=== PATIENT | male | born 1975 | race Caucasian/White ===

== ENCOUNTER 2022-06-02 03:23 | Outpatient (CLI) | payer BC, SELFPAY ==
[2022-06-02 08:34] LABS: ALT 45 U/L (16-63); AST 30 U/L (15-37); Albumin 4.3 g/dL (3.4-5.0); Alkaline Phosphatase 58 U/L (46-116); Anion Gap 6.4 mmol/L (3-11); BUN 14 mg/dL (7-18); Bilirubin, Total 0.7 mg/dL (0.2-1.0); CO2 29.6 mmol/L (21.0-32.0); CREATININE 0.9 mg/dL (0.70-1.30); Calcium 9.2 mg/dL (8.5-10.1); Calculated LDL 129 mg/dL (<100); Chloride 106 mmol/L (98-107); Cholesterol 195 mg/dL (<200); Estimated GFR 106.01 (mL/min/1.73m2); Glucose 98 mg/dL (74-106); HDL Cholesterol 48 mg/dL (40-60); Potassium 3.8 mmol/L (3.5-5.1); Sodium 142 mmol/L (136-145); Total Protein 8.1 g/dL (6.4-8.2); Triglyceride 91 mg/dL (<150)
== END 2022-06-02 03:24 | disposition home or self-care (01) ==
LOC: LBO 03:23
PROVIDERS: PCP Nurse Practitioner Adult Health; Visit Provider Nurse Practitioner Adult Health
DX: Z13.1 Encounter for screening for diabetes mellitus (principal); Z13.220 Encounter for screening for lipoid disorders; Z83.3 Family history of diabetes mellitus
CPT/HCPCS: 36415; 80053; 80061

== ENCOUNTER → 2023-01-28 02:48 | Outpatient (CLI) | payer BC, SELFPAY ==
--- NOTE | 2023-01-28 14:30 | DI.MRI_ITS ---
Exam(s) MR LOWER JOINT RT WO EXAM: MR LOWER JOINT RT WO CLINICAL HISTORY: INTERNAL DERANGEMENT RT KNEE M23.91. TECHNIQUE: Multiplanar multisequence MRI was performed. COMPARISON: CR KNEE from 01/02/2023 FINDINGS: BONES: There is no fracture or contusion pattern. There are findings of a prior ACL repair in the bon es Joint effusion. JOINTS: Articular cartilage is unremarkable. There is a small joint effusion. TENDONS: Extensor mechanism: Unremarkable. Medial retinaculum: Unremarkable. Lateral retinaculum: Unremarkable. Popliteus: Unremarkable. MUSCLES: Unremarkable. MENISCI: The posterior horn of the medial meniscus is truncated. There does appear to be extra mater ial in the anterior joint space suspicious for tear with a flipped fragment. There is hyperintense s ignal seen in the region of the root of the lateral meniscus suspicious for tear. SOFT TISSUES: Unremarkable. LIGAMENTS: Anterior Cruciate: There is a torn ACL. Posterior Cruciate: Unremarkable. Medial Collateral:Unremarkable. Lateral Collateral: Unremarkable. OTHER: IMPRESSION: 1. Tear of the posterior horn of the medial meniscus with fragment material seen now in the anterior joint space. 2. Findings suspicious for tear of the root of the lateral meniscus. 3. Anterior cruciate ligament tear. DATA REPOSITORY:
== END ==
PROVIDERS: PCP Nurse Practitioner Adult Health; Visit Provider Nurse Practitioner Acute Care
DX: S83.511A Sprain of anterior cruciate ligament of right knee, initial encounter (principal); M23.221 Derangement of posterior horn of medial meniscus due to old tear or injury, right knee; X58.XXXA Exposure to other specified factors, initial encounter
CPT/HCPCS: 73721

== ENCOUNTER 2024-05-09 09:21 | Outpatient (CLI) | payer BC, SELFPAY ==
[2024-05-09 09:12] LABS: Anion Gap 7.1 mmol/L (3-11); BUN 15 mg/dL (7-18); CO2 28.9 mmol/L (21.0-32.0); Calcium 9.5 mg/dL (8.5-10.1); Calculated LDL 132 mg/dL (<100); Chloride 107 mmol/L (98-107); Cholesterol 198 mg/dL (<200); Estimated GFR 92.26 (mL/min/1.73m2); Glucose 104 mg/dL (74-106); HDL Cholesterol 53 mg/dL (40-60); Potassium 3.9 mmol/L (3.5-5.1); Sodium 143 mmol/L (136-145); Triglyceride 68 mg/dL (<150)
== END 2024-05-09 09:22 | disposition home or self-care (01) ==
LOC: LBO 09:22
PROVIDERS: PCP Nurse Practitioner Adult Health; Visit Provider Nurse Practitioner Adult Health
DX: Z13.1 Encounter for screening for diabetes mellitus (principal); Z13.220 Encounter for screening for lipoid disorders
CPT/HCPCS: 36415; 80048; 80061

== ENCOUNTER 2025-05-15 08:03 | Outpatient (CLI) | payer OTHER, SELFPAY ==
[2025-05-15 07:24] LABS: Abs Immature Grans 0.01 10^3/uL (0.0-0.06); HCT 42.8 % (40.0-50.0); HGB 14.2 g/dL (13.5-17.5); Immature Grans % 0.2 %; MCH 29.6 pg (27.0-33.0); MCHC 33.2 % (32.0-36.0); MCV 89 fL (80-95); MPV 10.1 fL (8.0-11.0); Platelet Count 203 10^3/uL (130-400); RBC 4.80 10^6/uL (4.36-5.78); RDW 12.0 % (11.8-14.1); RDW-SD 39.3 fL; WBC 5.27 10^3/uL (4.4-10.8)
[2025-05-15 07:48] LABS: Hemoglobin A1C 5.3 % (<5.7)
[2025-05-15 08:21] LABS: Vitamin D 25 Total 27 ng/mL (30-100)
[2025-05-15 08:23] LABS: Folate 17.0 ng/mL (>5.38); Vitamin B12 483 pg/mL (211-911)
[2025-05-15 08:24] LABS: TSH (W/Ref FT4) 1.40 uIU/mL (0.55-4.78)
[2025-05-15 08:30] LABS: ALT 71 U/L (10-49); AST 35 U/L (<34); Albumin 4.4 g/dL (3.2-5.0); Alkaline Phosphatase 59 U/L (46-116); Anion Gap 9.4 mmol/L (3-11); BUN 15 mg/dL (9-23); Bilirubin, Total 0.6 mg/dL (0.2-1.2); CO2 28.6 mmol/L (20.0-31.0); Calcium 9.5 mg/dL (8.3-10.6); Chloride 106 mmol/L (98-107); Cholesterol 207 mg/dL (<200); Glucose 94 mg/dL (74-106); HDL Cholesterol 50 mg/dL (>or=40); Potassium 4.3 mmol/L (3.5-5.1); Sodium 144 mmol/L (136-145); Total Protein 7.5 g/dL (5.7-8.2)
[2025-05-16 09:52] LABS: HIV-1/2 Ag & Ab Screen Negative (Negative)
[2025-05-16 09:59] LABS: Hepatitis C Ab w Rflx HCV PCR Negative (Negative)
== END 2025-05-15 08:04 | disposition home or self-care (01) ==
LOC: LBO 08:04
PROVIDERS: PCP Nurse Practitioner Adult Health; Visit Provider Nurse Practitioner Adult Health
DX: Z11.3 Encounter for screening for infections with a predominantly sexual mode of transmission (principal); Z13.220 Encounter for screening for lipoid disorders; Z13.1 Encounter for screening for diabetes mellitus; Z13.29 Encounter for screening for other suspected endocrine disorder; Z13.21 Encounter for screening for nutritional disorder; Z13.0 Encounter for screening for diseases of the blood and blood-forming organs and certain disorders involving the immune mechanism
CPT/HCPCS: 36415; 80053; 80061; 82306; 86803; 87389; 82607; 82746; 83036; 84443; 85025